=== PATIENT | male | born 1995 | race Caucasian/White ===

== ENCOUNTER 2016-05-02 21:23 | Emergency (ER) | payer MEDICAID ==
[~2016-05-02 21:23] MED LIST: ABILIFY20 M1 PO; ADDERAL; ADDERALL 30 MG30 M1 PO; ALBUTEROL17 GM INH; AMOXIL500 MG PO; BENZACLIN GEL50 GM TP; CONCERTA PO; CONCERTA54 MG PO; GEODON PO; GEODON40 MG PO; GEODON60 MG PO; KEFLEX500 M4 PO; KRISTALOSE20 G/PKT PO; LITHIUM; MIRALAX17 G2 PO; SARAFEM10 M1 PO; STOOL SOFTENER100 M3 PO; ZITHROMAX250 MG PO
== END 2016-05-02 23:30 ==
LOC: EDMED 21:23
DX: K59.09 Other constipation (principal); F90.9 Attention-deficit hyperactivity disorder, unspecified type; F31.9 Bipolar disorder, unspecified; Z88.2 Allergy status to sulfonamides; Z79.899 Other long term (current) drug therapy

== ENCOUNTER 2016-05-05 18:15 | Emergency (ER) | payer MEDICAID | END 2016-05-05 18:30 | disposition left against medical advice (07) | LOC: EDMED 18:15 | DX: K59.00 Constipation, unspecified (principal); Z53.21 Procedure and treatment not carried out due to patient leaving prior to being seen by health care provider ==

== ENCOUNTER 2016-05-07 17:26 | Emergency (ER) | payer MEDICARE, MEDICAID ==
[2016-05-07] MEDS ORDERED: STOOL SOFTENER100 M2 (17:29)
== END 2016-05-07 18:41 ==
LOC: EDMED 17:26
DX: K59.09 Other constipation (principal); F90.9 Attention-deficit hyperactivity disorder, unspecified type; F31.9 Bipolar disorder, unspecified; Z79.899 Other long term (current) drug therapy